=== PATIENT | female | born 1945 | race Caucasian/White ===

== ENCOUNTER 2019-04-24 10:18 | Day surgery (SDC) | payer MEDICARE ==
[2019-04-23 13:03] VITALS: BMI 23.1
--- NOTE | 2019-04-24 13:29 | OP ---
DATE OF PROCEDURE: 04/24/2019 PROCEDURES PERFORMED: Esophagogastroduodenoscopy with biopsy, colonoscopy with polypectomy. INDICATION FOR PROCEDURES: Iron deficiency anemia, hematochezia. DESCRIPTION OF PROCEDURE: After the risks and benefits of the procedures were explained to the patient including risks of bleeding, infection, perforation, reactions to anesthesia, aspiration and/or pain, informed consent was obtained. The patient was then taken to the endoscopy suite, where deep sedation was administered via propofol and anesthesia support. Once adequate sedation was achieved, the standard gastroscope was introduced into the mouth with intubation of the esophagus, stomach, and the proximal small intestine with the findings listed below. The patient tolerated the procedure well with no immediate perioperative complications. Upon conclusion of the procedure, all equipment was removed from the patient, and the bed was rotated 180 degrees in anticipation of the colonoscopy. After a digital rectal examination was performed, the standard colonoscope was then advanced to the terminal ileum with some difficulty secondary to colonic tortuosity and redundancy. The quality of the prep was excellent. The patient tolerated the procedure well with no immediate perioperative complications. Upon conclusion of the colonoscopy, all equipment was removed from the patient, and she was transferred to [facility] in satisfactory condition. EGD FINDINGS: Esophagus: Normal-appearing mucosa was seen in the proximal, mid, and distal esophagus. There was no evidence of erosions, ulcerations, mass, lesions, or active/recent bleeding. The diaphragmatic pinch was well seen at 37 cm while the GE junction was well seen at 34 to 35 cm past the incisors indicating a 2 to 3 cm hiatal hernia. Stomach: A hiatal hernia was seen immediately upon entry into the stomach, but did not exhibit any evidence of Benigno erosions/ulcerations or active/recent bleeding. Otherwise, normal-appearing mucosa was seen in the gastric cardia, fundus, body, greater curvature, antrum, and incisura. There was no evidence of erosions, ulcerations, mass, lesions, or active/recent bleeding. Duodenum: Normal-appearing mucosa was seen in both the duodenal bulb and second portion of the duodenum. There was no evidence of erosions, ulcerations, mass, lesions, or active/recent bleeding. Random duodenal biopsies were taken for evaluation of celiac sprue. IMPRESSION: 1. A 2 to 3 cm hiatal hernia without evidence of Benigno ulcerations. 2. Otherwise normal upper endoscopy. COLONOSCOPY FINDINGS: Digital rectal exam, large external hemorrhoids were seen on external examination as well as prolapse of internal hemorrhoids during the course of the procedure when the patient exhibited increased coughing. COLON FINDINGS: The colonoscope was advanced to the terminal ileum with moderate difficulty due to significant tortuosity and redundancy of the colon, but was able to achieve terminal ileal intubation. Normal-appearing mucosa was seen within the terminal ileum as well as at the ileocecal valve and appendiceal orifice. Normal-appearing mucosa was then seen within the cecum, ascending colon, transverse colon, and descending colons. Numerous diverticula were seen within the sigmoid colon that were both small and large, but did not exhibit any increased mucosal erythema or colonic luminal narrowing with this. There was also no evidence of active/recent bleeding seen within this region. A 4 mm polyp was then seen in the rectum and completely removed with cold snare polypectomy. It was retrieved and placed in a specimen jar for evaluation. Otherwise, normal-appearing mucosa was seen within the distal rectum. On rectal retroflexion medium to large internal hemorrhoids as well as increased mucosal erythema were seen within the anal canal concerning for prolapse versus solitary rectal ulcer syndrome (although no ulceration was visualized during this exam). There was no evidence of active/recent bleeding seen within the rectum. IMPRESSION: 1. 4 mm rectal polyp, status post cold snare polypectomy. 2. Medium-sized internal hemorrhoids with evidence of prolapse. 3. Small to medium-sized external hemorrhoids. 4. With the prolapse of the internal hemorrhoids and distal colon, it could contribute to her hematochezia. RECOMMENDATIONS: 1. We will follow up on the polypectomy results with repeat colonoscopy interval depending on pathology. 2. We will continue iron supplementation given evidence of iron deficiency anemia. 3. Would place the patient on a higher fiber diet given the presence of internal hemorrhoids, external hemorrhoids, and [id number] sigmoid diverticulosis. 4. Given lack of an obvious source of anemia seen during examination today, we will refer the patient back to the [facility] for further evaluation with capsule endoscopy. Job ID: [id number]
== END 2019-04-24 12:53 | disposition home or self-care (01) ==
LOC: SDC 10:18
PROVIDERS: ATTEND Internal Medicine
PROC: 0DBP8ZX Excision of Rectum, Via Natural or Artificial Opening Endoscopic, Diagnostic (ICD-10-PCS; principal; 2019-04-24)
PROC: 0DB98ZX Excision of Duodenum, Via Natural or Artificial Opening Endoscopic, Diagnostic (ICD-10-PCS; 2019-04-24)
DX: K62.1 Rectal polyp (principal); K57.31 Diverticulosis of large intestine without perforation or abscess with bleeding; Q43.8 Other specified congenital malformations of intestine; D50.9 Iron deficiency anemia, unspecified; K44.9 Diaphragmatic hernia without obstruction or gangrene; K64.4 Residual hemorrhoidal skin tags; K64.8 Other hemorrhoids; Z79.82 Long term (current) use of aspirin; Z79.899 Other long term (current) drug therapy
CPT/HCPCS: 88305